=== PATIENT | female | born 1985 | race Caucasian/White ===

== ENCOUNTER 2023-09-22 09:24 | Outpatient (AMB) | payer OTHER, SELFPAY ==
--- NOTE | 2023-09-22 09:38 | A.OFFPC_ITS ---
Vital Signs 09/22/23 09:44 Height 5 ft 2 in Weight 129 lb 6 oz BMI 23.7 BP 118/78 Blood Pressure Location Lt brachial Position Sitting Pulse 89 Pulse Source Pulse Oximeter Pulse Oximetry (%) 100 Oxygen Delivery Method Room Air Intake Visit Reasons: New patient-requesting physical Intake Note: Patient is a new patient, with concern of heart palpitations. Allergies No Known Allergies Allergy (Verified 09/22/23 09:47) Tobacco use date assessed: 09/22/23 Dental Screening Dental Screen Date: 09/22/23 Did you have a dental visit in the last 12 months?: Yes Did you have a dental problem in the last 6 months where you did not have access to dental care?: No Was dental information given to patient?: Patient has dentist HPI New patient-requesting physical HPI Details New patient Prior PCP:? [facility] Last office visit/CPE: >1 year Acute issue(s): Heart Palpitations about?once?or?twice?a?month. Primarily?at?night?and?wakes?her?up. Also?notes?some?chest?pressure?in?the?center?of?her?chest.??Not?associated?with? exertion.??Does?not?happen?with?exertion. Patient?concerned?because?mom?has?history?of?SVT?and?dad?has?history?of?atrial?f ibrillation. Also?some?tingling?and?numbness?in?hands?and?fingers?which?is?associated?with?th henrique?episodes. Shortness of breath not associated with exertion. She?also?notes?some?gasping?while?sleeping?which?awakens?her. PMHx: Palpitations SurgHx: Endoscopy FHx: Dad: AFib. Mom: SVT. pGM: Breast CA SocHx: Nonsmoker. EtOH 2-3 drinks per week. No drugs. PFSH Medical History (Updated 09/22/23 @ 10:50 by Tim Hinton) Shingles Acid reflux IBS (irritable bowel syndrome) Cervical spine fracture Palpitations Asthma Surgical History (Updated 09/22/23 @ 09:54 by Valentine Teresa [facility]) H/O endoscopy Family History (Updated 09/22/23 @ 09:57 by Valentine Teresa CMA) Mother SVT (supraventricular tachycardia) Father Afib Paternal Grandmother Thyroid disorder Breast cancer Paternal Grandfather Diabetes Social History Housing: House Patient Tobacco Use Status: Never used Tobacco e-Cigarette/Vaping Use: Never Used service: No Current occupational status: employed 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 Cognitive needs: No Hearing needs: No Vision needs: Yes (Patient wears glasses) Questionnaire Thrive Questionnaire Date Thrive assessed: 09/22/23 I am a: Patient What is your living situation today?: I have a steady place to live Within the past 12 months, did the food you bought not last and you didn't have the money to get more?: Never true Within the past 12 months, did you worry whether your food would run out before you got money to buy more?: Never true Do you have trouble paying for medicines?: No Do you have trouble getting transportation to medical appointments?: No Do you have trouble paying your heating and electricity bill?: No Do you have trouble taking care of your child, family member or friend?: No Do you have trouble with day-to-day activities such as bathing, preparing meals, shopping, managing finances, etc.?: No Are you currently unemployed and looking for a job?: No Are you interested in more education?: No AUDIT C Alcohol Use Questionnaire (AUDIT-C) 1. How often do you have a drink containing alcohol?: 2-3 times a week 2. How many drinks containing alcohol do you have on a typical day when you are drinking?: 1 or 2 3. How often do you have six or more drinks on one occasion?: Never Total Score: 3 RIC-7 AMB Questionnaire RIC-7 Date RIC - 7 assessed: 09/22/23 Not being able to stop or control worryin = Not at all Worrying too much about different things: 0 = Not at all Trouble relaxin = Not at all Being so restless that it is hard to sit still: 0 = Not at all Becoming easily annoyed or irritable: 0 = Not at all Feeling afraid as if something awful might happen: 0 = Not at all Source: Developed by Drs. Madan Elizalde, Anita Hamilton, Eamon Strauss and colleagues, with an educational gayle from [employer]. Review of Systems Const Denies chills, Denies fatigue, Denies fever(s), Denies headache(s) and Denies w eakness ENT Denies dizziness and Denies headache(s) Card Denies chest pain, Denies lightheadedness, Denies dyspnea and Denies other (Palpitations) Resp Denies cough, Denies dyspnea, Denies wheezing and Denies other ( shortness of breath) Musc Denies numbness and Denies tingling Neuro Denies dizziness, Denies headache(s), Denies numbness, Denies tingling, Denies paresthesias and Denies weakness Psych Denies anxiety and Denies depression Endo Denies fatigue Aller/Immun Denies wheezing Physical exam (Primary Care) Vital Signs: Last Vital Signs Pulse 89 09/22/23 09:44 BP 118/78 09/22/23 09:44 Pulse Ox 100 09/22/23 09:44 Oxygen Delivery Method Room Air 09/22/23 09:44 BMI result Body Mass Index 23.7 Tobacco/Smoking Status: Tobacco use Status Tobacco use date assessed 09/22/23 09/22/23 10:02 Patient Tobacco Use Status Never used Tobacco 09/22/23 10:02 e-Cigarette/Vaping Use Never Used 09/22/23 10:02 Thrive Assessment: Date of Thrive Assessment Date Thrive assessed 09/22/23 09/22/23 10:02 Const General: no acute distress and well developed Nutritional Appearance: well nourished Orientation/consciousness: patient oriented x3 HENMT Head: Yes normocephalic and Yes atraumatic Eyes General: appearance normal, both eyes and all related structures Pupils: Equal, round and reactive pupils present EOM: EOMs intact bilaterally Resp Effort & Inspection: normal respiratory effort Auscultation: clear to auscultation bilaterally Cardio Rate: regular rate Rhythm: regular rhythm Heart sounds: S1 normal heart sound present, S2 normal heart sound present, no gallops, no murmurs and no rubs Neuro General: patient oriented x3 and gait normal Cranial nerves: Yes Equal, round and reactive pupils present Psych Affect: normal affect Assessment and Plan Assessment & Plan (1) Palpitations: Code(s): R00.2 - Palpitations Plan: Palpitations?1- 2?times?per?month?which?wake?her?up?and?are?not?associated?with?exertion She?notes?this?is?primarily?at?nighttime?and?also?associated?with?tingling?in?dee nds?and?feet. She?also?notes?some?awaken ing?gasping?at?times?but?this?is?not?always?associated?with?palpitations. EKG?shows?normal?sinus?rhythm;?normal?EKG Patient?also?notes?that?she?has?had?some?intermittent?chest?pain?which?has?not?b een?associated?with?the?palpitations?however. She?also?notes?that?her?parents?have?both?been?diagnosed?with?arrhythmias Referred?to?Cardiology?as?per?patient?request. (2) Palpitations: Code(s): R00.2 - Palpitations (3) Chest discomfort: Code(s): R07.89 - Other chest pain Plan: As?above Patient?notes?she?is?had?an?endoscopy?and?was?trialed?on?medication?for?GERD?in? the?past?as?this?was?the?working?diagnosis?at?the?time. She?says?the?endoscopy?was?clear?and?the?medication?did?not?help. As?above,?she?is?referred?to?Cardiology (4) Shortness of breath: Code(s): R06.02 - Shortness of breath Plan: Patient?awakens?short?of?breath?and?gasping?at?times. Possible?sleep?apnea-see?below (5) Sleep apnea: Code(s): G47.30 - Sleep apnea, unspecified Plan: Patient?occasionally?awakens?gasping Also?notes?tingling?in?hands?and?feet?at?that?time She?has?also?awakened?with?palpitations?at?time Referred?to?Sleep?Medicine Orders: Orders AMB EKG-In Office Today R00.2 - Palpitations Lipid Panel Today Z00.00 - Encounter for general adult medical examination without abnormal findings TSH reflex Free T4 Today Z00.00 - Encounter for general adult medical examination without abnormal findings Comprehensive [place]. Panel Fast Today Z00.00 - Encounter for general adult medical examination without abnormal findings Complete Blood Count Auto Diff Today Z00.00 - Encounter for general adult medical examination without abnormal findings Microalbumin, Random (w Creat) Today I10 - Essential (primary) hypertension UA and rflx microscopic Today Z00.00 - Encounter for general adult medical examination without abnormal findings Referrals Sleep Medicine Referral G47.30 - Sleep apnea, unspecified Cardiology Referral R00.2 - Palpitations, R06.02 - Shortness of breath, R07.89 - Other chest pain Coding Level of Care Code New Pt Level 4 (62150) Diagnoses Palpitations R00.2 Chest discomfort R07.89 Shortness of breath R06.02 Sleep apnea G47.30
[2023-09-22 09:44] VITALS: BP 118/78; PULSE 89; O2SAT 100; BMI 23.7
== END 2023-09-22 10:43 | disposition home or self-care (01) ==
PROVIDERS: PCP Family Medicine; Visit Provider Family Medicine
DX: R00.2 Palpitations (principal); R07.89 Other chest pain; R06.02 Shortness of breath; G47.30 Sleep apnea, unspecified
CPT/HCPCS: 99204

== ENCOUNTER 2023-09-29 08:47 | Outpatient (REF) | payer OTHER, SELFPAY ==
[2023-09-29 11:31] LABS: Appearance Urine Clear; Color Urine Yellow; Glucose Urine UA Negative (Negative); Leukocyte Esterase Urine Moderate (2+) (Negative); MANUAL DIFF FLAG NO; Nitrite Urine Negative (Negative); Specific Gravity - Urine <= 1.005 (1.005-1.025); UMIC TRIGGER UA YES; Urine Blood Negative (Negative); Urine Ketones Negative (Negative); Urine Protein Negative (Neg-Trace)
[2023-09-29 11:33] LABS: Basophils Absolute Auto 0.1 X10*3/uL (0.0-0.2); Basophils Percent Auto 0.8 % (0-2); Eosinophils Absolute Auto 0.2 X10*3/uL (0.0-0.4); Eosinophils Percent Auto 2.3 % (0-4); Hematocrit 41.1 % (37.0-47.0); Hemoglobin 13.3 g/dl (12.0-16.0); Imm Gran Abs Auto 0.03 X10*3/uL (0.00-0.03); Imm Gran Pct Auto 0.4 % (0.0-0.4); Lymphocytes Absolute Auto 2.3 X10*3/uL (1.2-4.9); Mean Corpuscular HGB Conc 32.4 g/dl (31.0-35.0); Mean Corpuscular Hemoglobin 27.2 pg (27.0-33.0); Mean Platelet Volume 9.5 fL (9.4-12.3); Monocytes Absolute Auto 0.5 X10*3/uL (0.1-1.2); Monocytes Percent Auto 6.3 % (2-11); Neutrophils Absolute Auto 4.4 x10*3/uL (2.0-8.3); Neutrophils Percent Auto 59.2 % (45-73); Platelet Count 318 X10*3/uL (160-400); Red Blood Count 4.89 X10*6/uL (4.20-5.50); Red Cell Distribution Width 12.4 % (11.0-16.0); White Blood Count 7.4 X10*3/uL (4.8-10.8)
[2023-09-29 11:45] LABS: Bacteria Urine Trace (None Seen); Hyaline Casts Urine 0-2 /LPF (0-2); RBC Urine 0-2 /HPF (0-2); WBC Urine 0-5 /HPF (0-5)
[2023-09-29 12:23] LABS: Alanine Aminotransferase 10 U/L (0-31); Albumin Level 4.2 g/dL (3.5-5.0); Alkaline Phosphatase 54 U/L (39-117); Anion Gap 11 (12-20); Aspartate Amino Transferase 16 U/L (5-31); Bilirubin Total 0.4 mg/dL (0.0-1.0); Blood Urea Nitrogen 13 mg/dL (9-16); Calcium 9.4 mg/dL (8.4-10.2); Carbon Dioxide 23 mmol/L (22-29); Chloride 106 mmol/L (96-108); Cholesterol 234 mg/dL (<200); Estimated Glomerular Filt Rate > 60; Glucose Fasting 84 mg/dL (60-99); HDL Cholesterol 66 mg/dL (>40); LDL Cholesterol Calculated 144 mg/dL (<100); Potassium 4.2 mmol/L (3.3-5.1); Sodium 136 mmol/L (135-145); TSH reflex Free T4 1.12 uIU/mL (0.32-4.0); Total Protein 7.4 g/dL (6.5-8.0); Triglycerides 124 mg/dL (<150)
[2023-09-29 12:42] LABS: Creatinine Urine 35.22 mg/dL; Microalbumin Urine < 5.0 mg/L
== END 2023-09-29 08:48 | disposition home or self-care (01) ==
LOC: HO.WFDLDS 08:47
PROVIDERS: Visit Provider Family Medicine
DX: Z00.00 Encounter for general adult medical examination without abnormal findings (principal); I10 Essential (primary) hypertension
CPT/HCPCS: 36415; 80053; 80061; 81001; 82043; 82570; 84443; 85025

== ENCOUNTER 2023-10-18 08:09 | Outpatient (AMB) | payer OTHER, SELFPAY ==
--- NOTE | 2023-10-18 08:12 | A.OFFVIS_ITS ---
Intake Vital Signs 10/18/23 08:15 Height 5 ft 2 in Weight 133 lb BMI 24.3 BP 110/70 Blood Pressure Location Rt brachial Position Sitting Pulse 87 Pulse Source Pulse Oximeter Pulse Oximetry (%) 97 Oxygen Delivery Method Room Air Intake Visit Reasons: 09/22 Letter-Busy tone [id number] Intake Note: NPV for evaluation for BUFFY Aquatic Director Required: No Allergies No Known Allergies Allergy (Verified 10/18/23 08:13) HPI HPI Comments History of Present Illness Details 38 y/o female patient presents for new i n-person visit for sleep consultation. Pt reports palpitation,chest heviness and gasping at night. She checked her HR when she had episode of palpitation, the HR was over 130s. She was diagnosed with GERD and IBS recently. Pt reports snoring, and witnessed apnea spells. She has non refreshing sleep with daytime sleepiness. She drinks one beer or one glass of wine 2-3 times a week before 6 pm. Sleep questionnaire: Have you ever been diagnosed with a sleep disorder? No. Have you ever had a sleep study in the past? No. Have you ever been treated for a sleep disorder? No. Do you take medications for a sleep disorder? No. Do you snore? Yes. Do you wake up gasping at night? Yes. Do you have episodes of apneas? Yes. If yes, are they witnessed? Yes, by her . Do you have episodes of nocturnal chest pain or dyspnea? Yes. Do you have difficulty initiating sleep? Yes. Do you have difficulty maintaining sleep? Yes, tosses and turns, can't sleep throughout the night. Do you wake up tired? Yes. Do you have headaches upon awakening? Yes, slightly. Do you wake up with dry mouth or throat? Not really. Do you have GERD? Yes. Do you have nocturia? Maybe once. Do you have nocturnal leg cramps? No. Do you have symptoms of restless legs? No. Do you act out your dreams? Yes, sometimes. Sleep hygiene questionnaire: What is your usual sleep routine? Usual bedtime is at 9-10 am; Usual wake up harry e is at 7-7:30 am. Do you take naps? No. Is your sleep environment cool, dark, and quiet? Yes. Do you exercise? Yes, wt lifting, couple of times a week. Do you take caffeine or other stimulants? One coffee in the morning. Do you use electronics in bed? No. What is your work schedule? 4 pm to 9 pm. Hypersomnolence questionnaire: Do you have daytime tiredness or fatigue? Yes. Do you easily fall asleep when inactive? No. Have you ever had episodes of sudden weakness? No. Have you ever had episodes of sudden weakness associated with strong emotions? No. PFSH Medical History (Updated 10/18/23 @ 08:34 by Moraima Lemus CNP) Shingles Acid reflux IBS (irritable bowel syndrome) Cervical spine fracture Palpitations Asthma Surgical History (Updated 09/22/23 @ 09:54 by Valentine Teresa [facility]) H/O endoscopy Family History (Updated 09/22/23 @ 09:57 by Valentine Teresa CMA) Mother SVT (supraventricular tachycardia) Father Afib Paternal Grandmother Thyroid disorder Breast cancer Paternal Grandfather Diabetes (Updated 10/18/23 @ 08:14 by Elvira Maldonado [facility]) Housing: House Alcohol intake: current Alcohol intake frequency: holidays/special occasions only Patient Tobacco Use Status: Never used Tobacco e-Cigarette/Vaping Use: Never Used service: No Current occupational status: employed 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 Sexual orientation: Unable to collect Gender identity: Unable to collect Cognitive needs: No Hearing needs: No Vision needs: Yes (Patient wears glasses) Review of Systems Const All systems reviewed & are unremarkable except as noted in HPI and below ENT Reports Normal hearing present Neuro Reports Normal hearing present Physical Exam Vital Signs: Last Vital Signs Pulse 87 10/18/23 08:15 BP 110/70 10/18/23 08:15 Pulse Ox 97 10/18/23 08:15 Oxygen Delivery Method Room Air 10/18/23 08:15 BMI result Body Mass Index 24.3 Const General: cooperative Nutritional Appearance: average body habitus Orientation/consciousness: patient oriented x3 Neck Neck: Yes full ROM and Yes supple Resp Effort & Inspection: normal respiratory effort and able to speak in complete sentences Neuro General: patient oriented x3, gait normal and moves all extremities Cranial nerves: Yes Bilaterally intact EOM present, Yes Normal facial strength present, Yes Midline tongue present, Yes Symmetric palate elevation present, Yes Normal hearing present and Yes Ability to bilaterally elevate shoulders present Cognition (Neuro): normal cognition Gait exam (Neuro): Normal gait present Motor exam (neuro): 5/5 motor strength present throughout, Pronator motor function not present and no tremor noted Psych Appearance: grossly normal Mental Status: mental status grossly normal Speech and movement: Normal speech and movement present Affect: normal affect Attitude: cooperative Assessment & Plan Assessment & Plan (1) Daytime sleepiness: Code(s): R40.0 - Somnolence (2) Snoring: Code(s): R06.83 - Snoring (3) Sleep apnea: Code(s): G47.30 - Sleep apnea, unspecified Plan Pt is advised to undergo home sleep study to assess for sleep apnea. Will f/u with pt after study to discuss results and appropriate treatment options. Advised patient to try magnesium supplement for sleep and prevent headache. Pt to call with any worsening concerns or questions. Orders: Orders RT home sleep study Today G47.30 - Sleep apnea, unspecified, R00.2 - Palpitations, R06.83 - Snoring, R07.89 - Other chest pain, R40.0 - Somnolence Coding Level of Care Code New Pt Level 3 (81717) Diagnoses Daytime sleepiness R40.0 Snoring R06.83 Sleep apnea G47.30
[2023-10-18 08:15] VITALS: BP 110/70; PULSE 87; O2SAT 97; BMI 24.3
== END 2023-10-18 08:45 | disposition home or self-care (01) ==
PROVIDERS: PCP Family Medicine; Visit Provider Nurse Practitioner Family
DX: R40.0 Somnolence (principal); R06.83 Snoring; G47.30 Sleep apnea, unspecified
CPT/HCPCS: 99203

== ENCOUNTER → 2023-10-18 08:09 | Outpatient (BNVA) | payer OTHER, SELFPAY | PROVIDERS: PCP Family Medicine; Visit Provider Nurse Practitioner Family | DX: R07.89 Other chest pain (principal); R00.2 Palpitations; R06.83 Snoring; G47.30 Sleep apnea, unspecified; R40.0 Somnolence | CPT/HCPCS: 99202 ==

== ENCOUNTER 2023-12-08 10:46 | Outpatient (AMB) | payer OTHER, SELFPAY ==
--- NOTE | 2023-12-08 11:20 | A.OFFPC_ITS ---
Vital Signs 12/08/23 11:22 Height 5 ft 2 in Weight 132 lb BMI 24.1 BP 148/82 H Blood Pressure Location Lt brachial Position Sitting Respiration 16 Pulse 140 H Pulse Source Pulse Oximeter Pulse Oximetry (%) 99 Oxygen Delivery Method Room Air Intake Visit Reasons: CPE with f/u labs and health maint. Intake Note: Patient is here today for a physical. 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 HPI Details 38 y/o female presents for a CPE with f/ u labs and health maintenance. Labs were drawn 09/29/23. Reviewed labs with pt. Triglycerides 124. TC 234. LDL 144. HDL 66. Blood pressure today 148/82, 140p. She reports she has an appt. with Cardiology on 12/26/23. Pt notes she feels anxious sometimes but not on a daily basis. Pt reports acid reflux with trigger food that sometimes happens more than once a week. [facility] Medical History (Updated 12/08/23 @ 12:13 by Tim Hinton) Shingles Acid reflux IBS (irritable bowel syndrome) Cervical spine fracture Palpitations Asthma Surgical History H/O endoscopy Family History Mother SVT (supraventricular tachycardia) Father Afib Paternal Grandmother Thyroid disorder Breast cancer Paternal Grandfather Diabetes Social History Housing: House Alcohol intake: current Alcohol intake frequency: holidays/special occasions only Patient Tobacco Use Status: Never used Tobacco e-Cigarette/Vaping Use: Never Used service: No Current occupational status: employed 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 1. Little interest or pleasure in doing things: not at all 2. Feeling down, depressed, or hopeless: not at all 3. Trouble falling or staying asleep, or sleeping too much: not at all 4. Feeling tired or having little energy: not at all 5. Poor appetite or overeating: not at all 6. Feeling bad about yourself - or that you are a failure or have let yourself or your family down: not at all 7. Trouble concentrating on things, such as reading the newspaper or watching television: not at all 8. Moving or speaking so slowly that other people could have noticed. Or the opposite - being so fidgety or restless that you have been moving around a lot more than usual: not at all 9. Thoughts that you would be better off or of hurting yourself in some way: not at all Total score: 0 Depression Screening Interpretation: Negative Depression Screening Done: Yes 55382 - PHQ-9 Billing: Yes Source: Developed by Drs. Madan Elizalde, Aniat Hamilton, Eamon Strauss and colleagues, with an educational gayle from [employer]. Thrive Questionnaire Date Thrive assessed: 12/08/23 I am a: Patient What is your living situation today?: I have a steady place to live Within the past 12 months, did the food you bought not last and you didn't have the money to get more?: Never true Within the past 12 months, did you worry whether your food would run out before you got money to buy more?: Never true Do you have trouble paying for medicines?: No Do you have trouble getting transportation to medical appointments?: No Do you have trouble paying your heating and electricity bill?: No Do you have trouble taking care of your child, family member or friend?: No Do you have trouble with day-to-day activities such as bathing, preparing meals, shopping, managing finances, etc.?: No Are you currently unemployed and looking for a job?: No Are you interested in more education?: No Please select the resources that you would like help with: None Currently or been in a relationship where the following occur: no concerns reported AUDIT C Alcohol Use Questionnaire (AUDIT-C) 1. How often do you have a drink containing alcohol?: 2-3 times a week 2. How many drinks containing alcohol do you have on a typical day when you are drinking?: 1 or 2 3. How often do you have six or more drinks on one occasion?: Never Total Score: 3 RIC-7 AMB Questionnaire RIC-7 Date RIC - 7 assessed: 12/08/23 Feeling nervous, anxious, or on edge: 0 = Not at all Not being able to stop or control worryin = Not at all Worrying too much about different things: 0 = Not at all Trouble relaxin = Not at all Being so restless that it is hard to sit still: 0 = Not at all Becoming easily annoyed or irritable: 0 = Not at all Feeling afraid as if something awful might happen: 0 = Not at all Total RIC-7 score (0-4 normal; 5-9 mild; 10-14 moderate; 15-21 severe): 0 Source: Developed by Drs. Madan Elizalde, Anita Hamilton, Eamon Strauss and colleagues, with an educational gayle from [employer]. RIC-7 Assessment Billing RIC-7 Assessment Tool: RIC-7 Assessment 01043 Review of Systems Const Denies chills, Denies fatigue, Denies fever(s), Denies headache(s) and Denies weakness Eyes Denies change in vision ENT Denies dizziness, Denies headache(s), Denies hearing loss, Denies nasal congestion, Denies sinus pain, Denies sinus pressure and Denies sore throat Card Denies chest pain, Denies lightheadedness, Denies dyspnea and Denies other (palpitations) Resp Denies cough, Denies dyspnea and Denies wheezing GI Denies abdominal pain, Denies melena, Denies hematochezia, Denies change in bowel habits, Denies dyspepsia and Denies nausea Denies hematuria and Denies dysuria Musc Denies abnormal gait, Denies myalgias, Denies arthralgias, Denies numbness and Denies tingling Skin/Breast Denies rash, Denies unusual bruising and Denies wounds Neuro Denies abnormal gait, Denies dizziness, Denies headache(s), Denies memory loss, Denies numbness, Denies Sensory deficit (Neuro), Denies tingling and Denies weakness Psych Denies anxiety, Denies depression and Denies memory loss Endo Denies cold intolerance, Denies fatigue, Denies heat intolerance, Denies polydipsia and Denies polyuria Jay Jay/Lymph Denies easy bleeding and Denies easy bruising Aller/Immun Denies wheezing Physical exam (Primary Care) Vital Signs: Last Vital Signs Pulse 140 H 12/08/23 11:22 Resp 16 12/08/23 11:22 BP 148/82 H 12/08/23 11:22 Pulse Ox 99 12/08/23 11:22 Oxygen Delivery Method Room Air 12/08/23 11:22 BMI result Body Mass Index 24.1 Tobacco/Smoking Status: Tobacco use Status Tobacco use date assessed 12/08/23 12/08/23 11:27 Patient Tobacco Use Status Never used Tobacco 12/08/23 11:20 e-Cigarette/Vaping Use Never Used 12/08/23 11:20 PHQ-9: PHQ-9 Score PHQ-9: Total score 0 12/08/23 11:27 Depression Screening Interpretation: Negative Thrive Assessment: Date of Thrive Assessment Date Thrive assessed 12/08/23 12/08/23 11:27 Currently or been in a relationship where the following occur: no concerns reported Const General: no acute distress, well developed, alert and awake Nutritional Appearance: well nourished Orientation/consciousness: patient oriented x3 HENMT Head: Yes normocephalic and Yes atraumatic Ears: hearing grossly normal bilaterally and TM's normal bilaterally General nose exam: Normal external nose present and Normal nares present Mouth: Normal oral and palatal mucosa present and moist mucous membranes Teeth and gingiva: dentition normal Throat: Yes posterior oropharynx normal Eyes General: appearance normal, both eyes and all related structures Pupils: Equal, round and reactive pupils present and Pupil accommodation reflex normal EOM: EOMs intact bilaterally Neck Neck: Yes normal visual inspection, Yes no lymphadenopathy and Yes trachea midline Thyroid: Thyroid normal Carotids: no bruits Lymphatic: no lymphadenopathy noted Chest Chest palpation & inspection: normal inspection of the chest Resp Effort & Inspection: normal respiratory effort Auscultation: clear to auscultation bilaterally Cardio Rate: tachycardic Rhythm: regular rhythm Heart sounds: S1 normal heart sound present, S2 normal heart sound present, no gallops, no murmurs and no rubs Bruits: no abdominal aortic bruits and no carotid bruits GI Palpation (GI): No Abdominal aortic bruit present, Soft to palpation, nontender, No hepatosplenomegaly present and No Rebound tenderness present Auscultation: normal bowel sounds General: Yes no CVA tenderness Back/Spine/Pelvis Back: no CVA tenderness Cervical Spine: cervical ROM normal and No Cervical spine tenderness Thoracic/Lumbar Spine: thoraco-lumbar ROM normal, No pain with thoraco-lumbar ROM, No thoracic spinal tenderness and No lumbar spinal tenderness Skin Lesions: no lesions Rashes: no rashes Trauma: no lacerations or abrasions Wounds: no wounds Nails: normal Neuro General: patient oriented x3 Cranial nerves: Yes Equal, round and reactive pupils present Cognition (Neuro): normal cognition Gait exam (Neuro): Normal gait present Motor exam (neuro): 5/5 motor strength present throughout Sensory Exam: No Sensory deficit (Neuro) Deep tendon reflexes (DTR's): Right patellar reflex intensity grade: 2+ and Left patellar reflex intensity grade: 2+ Extrem General: Yes normal to inspection and No edema Psych Appearance: grossly normal Affect: normal affect Attitude: cooperative Thought process: Normal thought process present Assessment and Plan Assessment & Plan (1) Tachycardia: Code(s): R00.0 - Tachycardia, unspecified Plan: Bouts?of?palpitations?and?tachycardia. Cardiac?auscultation?was?normal?except?for?elevated?heart?rate?in?the?1?teens Blood?pressure?was?mildly?elevated. Heart?rate?decreased?with?time?and?relaxation EKG?showed?heart?rate?of?97?beats?per?minute. Normal?sinus?rhythm,?normal?axis,?normal?intervals,?no?hypertrophy?and?no?ST-T-w ave?changes. She?already?has?an?appointment?with?cardiology. Will?give?her?a?small?dose?of?metoprolol. Follow-up?with?Cardiology?as?recommended (2) Knee pain: Code(s): M25.569 - Pain in unspecified knee (3) Screening for cervical cancer: Code(s): Z12.4 - Encounter for screening for malignant neoplasm of cervix (4) Adult general medical exam: Code(s): Z00.00 - Encounter for general adult medical examination without abnormal findings (5) Elevated LDL cholesterol level: Code(s): E78.00 - Pure hypercholesterolemia, unspecified Plan: HDL?ratios?are?good. Encouraged?her?to?work?on?a?diet?lower?in?saturated?fats?and?cholesterol. No?medications?started Orders: Orders XR knee LT 3V Today M25.569 - Pain in unspecified knee Medications: New metoprolol succinate ER 12.5 mg (1/2 x 25 mg) PO BID PRN 90 tabs 1RF Palpitations/Fast Heart Rate 90 days Coding Level of Care Code Est Pt Level 3 (87725) Est Pt Prev Care 18-39y(13458) Diagnoses Tachycardia R00.0 Knee pain M25.569 Screening for cervical cancer Z12.4 Adult general medical exam Z00.00 Elevated LDL cholesterol level E78.00 Additional Codes RIC-7 Assessment Billing - RIC-7 Assessment Tool: RIC-7 Assessment 44759 ([id number])
[2023-12-08 11:22] VITALS: BP 148/82; PULSE 140; RESP 16; O2SAT 99; BMI 24.1
== END 2023-12-08 12:16 | disposition home or self-care (01) ==
PROVIDERS: PCP Family Medicine; Visit Provider Family Medicine
DX: Z00.00 Encounter for general adult medical examination without abnormal findings (principal); R00.0 Tachycardia, unspecified; M25.562 Pain in left knee; E78.00 Pure hypercholesterolemia, unspecified
CPT/HCPCS: 93000; 99213; 99395

== ENCOUNTER 2023-12-26 12:17 | Outpatient (AMB) | payer OTHER, SELFPAY ==
[2023-12-26 12:38] VITALS: BP 114/72; PULSE 99; BMI 23.4
--- NOTE | 2023-12-26 12:38 | A.OFFVIS_ITS ---
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 She states that she frequently feels her heart fluttering. This happens mostly when she is resting unless so during activity. Has had this for a few years off and on. In 2019, she was seen at [facility] and it seems that a 30 day monitor was recommended but did not pursue that. Otherwise, no known cardiac issues including coronary disease or myocardial infarction or cardiomyopathy. No known arrhythmias. She tried empiric metoprolol but had side effects and hence not taking it currently. She also has asthma but again well controlled. There is a family history of supraventricular tachycardia as well as atrial fibrillation and hence she is concerned. [facility] Medical History (Updated 12/08/23 @ 12:13 by Tim Hinton) Shingles Acid reflux IBS (irritable bowel syndrome) Cervical spine fracture Palpitations Asthma Surgical History H/O endoscopy Family History Mother SVT (supraventricular tachycardia) Father Afib Paternal Grandmother Thyroid disorder Breast cancer Paternal Grandfather Diabetes Social History Housing: House Alcohol intake: current Alcohol intake frequency: holidays/special occasions only Patient Tobacco Use Status: Never used Tobacco e-Cigarette/Vaping Use: Never Used service: No Current occupational status: employed 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 Sexual orientation: Unable to collect Gender identity: Unable to collect Cognitive needs: No Hearing needs: No Vision needs: Yes (Patient wears glasses) Review of Systems Const Denies chills, Denies daytime sleepiness, Denies fatigue, Denies fever(s), Denies frequent falls, Denies night sweats, Denies snoring, Denies weakness, Denies weight gain and Denies weight loss Eyes Denies loss of vision ENT Denies dizziness and Denies hearing loss Card Denies chest pain with activity, Denies syncope, Denies rapid heart rate, Denies edema, Denies claudication, Denies leg edema, Denies lightheadedness, Denies dyspnea and Denies orthopnea Resp Denies cough, Denies excessive phlegm production, Denies dyspnea, Denies snoring and Denies wheezing GI Denies abdominal pain, Denies hematochezia, Denies change in bowel habits, Denies change in stool character, Denies heartburn, Denies nausea and Denies vomiting Denies hematuria, Denies urinary frequency and Denies dysuria Musc Denies arthralgias, Denies muscle weakness, Denies numbness and Denies tingling Skin/Breast Denies nail changes and Denies rash Neuro Denies Abnormal speech present, Denies dizziness, Denies syncope, Denies frequent falls, Denies loss of vision, Denies memory loss, Denies numbness, Denies tingling and Denies weakness Psych Denies depression and Denies memory loss Endo Denies fatigue Aller/Immun Denies wheezing Physical Exam Vital Signs: Last Vital Signs Pulse 99 12/26/23 12:38 BP 114/72 12/26/23 12:38 BMI result Body Mass Index 23.4 Const General: comfortable and no acute distress Orientation/consciousness: patient oriented x3 HEENT Other: Unremarkable Head: Yes normal to inspection Neck Neck: Yes normal visual inspection Chest Chest palpation & inspection: normal inspection of the chest Resp Auscultation: clear to auscultation bilaterally Cardio Palpation: normal PMI Heart sounds: S1 normal heart sound present, S2 normal heart sound present, no gallops, no murmurs and no rubs GI Palpation (GI): Soft to palpation Back/Spine/Pelvis Other: unremarkable Skin General skin exam: no rashes or lesions noted Neuro General: patient oriented x3 Speech: No Abnormal speech present Extrem General: Yes normal to inspection Psych Mental Status: mental status grossly normal Assessment & Plan Assessment & Plan (1) Palpitations: Code(s): R00.2 - Palpitations Plan In the recent EKG, underlying rhythm is sinus at 97/Min; no significant ST-T changes and otherwise unremarkable. Normal UT and corrected QT. Not clear if she is feeling any sinus tachycardia or truly having any arrhyth mias. Recommend a 30 day monitor for further evaluation. Echocardiogram for cardiac function assessment. She can hold off beta-blockers at this time as she is stating side effects. Follow-up after testing. Orders: Orders CA echo transthoracic complete Today R00.2 - Palpitations ECG 30 day event monitor Today R00.2 - Palpitations Coding Level of Care Code New Pt Level 3 (55590) Diagnoses Palpitations R00.2
== END 2023-12-26 12:58 | disposition home or self-care (01) ==
PROVIDERS: PCP Family Medicine; Referring Provider Family Medicine; Visit Provider Internal Medicine
DX: R00.2 Palpitations (principal)
CPT/HCPCS: 99203

== ENCOUNTER → 2023-12-26 12:17 | Outpatient (BNVA) | payer OTHER, SELFPAY | PROVIDERS: PCP Family Medicine; Visit Provider Internal Medicine | DX: R00.2 Palpitations (principal) | CPT/HCPCS: 99202 ==

== ENCOUNTER 2024-01-12 08:36 | Outpatient (AMB) | payer OTHER, SELFPAY ==
[2024-01-12 08:51] VITALS: BP 121/72; PULSE 86; O2SAT 99; BMI 23.7
--- NOTE | 2024-01-12 08:51 | MHC.PC.OV ---
Vital Signs 01/12/24 08:51 Height 5 ft 2 in Weight 129 lb 6 oz BMI 23.7 BP 121/72 Blood Pressure Location Lt brachial Pulse 86 Pulse Oximetry (%) 99 Oxygen Delivery Method Room Air Intake Visit Reasons: f/u knee pain Intake Note: Patient is here to follow up on left knee pain, not feeling better. Allergies No Known Allergies Allergy (Verified 01/12/24 08:55) Tobacco use date assessed: 01/12/24 HPI f/u knee pain HPI Details 38 y/o female presents to f/u tachycardia and L knee discomfort. EKG had shown normal sinus rhythm though she did have tachycardia to auscultation earlier in exam. Trialing metoprolol. Had seen Cardiology 12/26/23 for palpitations. They had recommended a 30 day monitor for further evaluation. Pt reports metoprolol had been giving her bad headaches and was unable to tolerate this. She notes she will go next week to get her echocardiogram and to miner pick her monitor. 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 Madan Elizalde, Anita Hamilton, Eamon Strauss and colleagues, with an educational gayle from [employer]. Review of Systems Const Denies chills, Denies fatigue, Denies fever(s), Denies headache(s) and Denies weakness ENT Denies dizziness and Denies headache(s) Card Denies dyspnea Resp Denies cough, Denies dyspnea, Denies wheezing and Denies other (shortness of breath) Musc Details: L knee pain Denies numbness and Denies tingling Neuro Denies dizziness, Denies headache(s), Denies numbness, Denies tingling and Denies weakness Psych Denies anxiety and Denies depression Endo Denies fatigue Aller/Immun Denies wheezing Physical exam (Primary Care) Vital Signs: Last Vital Signs Pulse 86 01/12/24 08:51 BP 121/72 01/12/24 08:51 Pulse Ox 99 01/12/24 08:51 Oxygen Delivery Method Room Air 01/12/24 08:51 BMI result Body Mass Index 23.7 Tobacco/Smoking Status: Tobacco use Status Tobacco use date assessed 01/12/24 01/12/24 08:59 Patient Tobacco Use Status Never used Tobacco 01/12/24 08:51 e-Cigarette/Vaping Use Never Used 01/12/24 08:51 Thrive Assessment: Date of Thrive Assessment Date Thrive assessed 12/08/23 01/12/24 08:51 Const General: well developed; No acute distress Nutritional Appearance: well nourished Orientation/consciousness: patient oriented x3 [facility] Head: Yes normocephalic and Yes atraumatic Eyes General: appearance normal, both eyes and all related structures Pupils: Equal, round and reactive pupils present EOM: EOMs intact bilaterally Resp Effort & Inspection: normal respiratory effort Auscultation: clear to auscultation bilaterally Cardio Rate: regular rate Rhythm: regular rhythm Heart sounds: S1 normal heart sound present, S2 normal heart sound present, no gallops, no murmurs and no rubs Neuro General: patient oriented x3 and gait normal Cranial nerves: Yes Equal, round and reactive pupils present Psych Affect: normal affect Assessment and Plan Assessment & Plan (1) Palpitations: Code(s): R00.2 - Palpitations Plan: Ongoing?palpitations.??Had?tried?metoprolol?but?she?said?this?gave?her?headaches?so?she?has?no?longer?taking?it. She?has?seen?Cardiology. Workup?is?still?in?progress.??She?has?a?Holter?monitor?test?and?echocardiogram?coming?up?and?follow-up?with?cardiology?in?February. Follow-up?with?Cardiology?as?recommended (2) Tachycardia: Code(s): R00.0 - Tachycardia, unspecified Plan: Mild?tachycardia?with?otherwise?normal?EKG. Heart?rate?within?normal?range?to?auscultation?today. 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 Will?start?PT?and?I?have?referred?her?to?Ortho. Discussed?with?patient?that?osteochondromas?are?generally?painless?and?benign. Orders: Orders PT Evaluation and Treatment Today M25.569 - Pain in unspecified knee Referrals Orthopedics Referral D16.20 - Benign neoplasm of long bones of unspecified lower limb, M25.569 - Pain in unspecified knee Coding Level of Care Code Est Pt Level 3 (81379) Diagnoses Palpitations R00.2 Tachycardia R00.0 Knee pain M25.569
== END 2024-01-12 09:27 | disposition home or self-care (01) ==
PROVIDERS: PCP Family Medicine; Visit Provider Family Medicine
DX: R00.2 Palpitations (principal); R00.0 Tachycardia, unspecified; M25.569 Pain in unspecified knee
CPT/HCPCS: 99213

== ENCOUNTER → 2024-01-18 09:03 | Outpatient (REF) | payer OTHER, SELFPAY ==
--- NOTE | 2024-01-18 09:07 | HM_ITS ---
Cardiac event monitor Indication: Palpitation Technique: Patient was hooked up to cardiac event monitor on 2 02/14/2024 for total period of 30 days. Compliance rate was excellent. I was requested to read this study on 03/05/2024. Findings: Baseline was normal sinus rhythm with frequent sinus tachycardia noted with 30% of the time heart rate about 100 beats per minute. No significant arrhythmias were noted. No significant pauses were noted. Patient reported to events 1 complaining of dizziness and the other complaining of racing heart rate both correlating with sinus tachycardia. Conclusion: 1. Baseline was normal sinus rhythm with no pauses 2. No significant arrhythmias detected 3. Patient reported to events correlated with sinus tachycardia MTDD
--- NOTE | 2024-01-18 09:07 | CA_ITS ---
Transthoracic Echocardiogram Patient (Last, First, Middle): Rhiannon Wilson, Gender: Female Date of : 1985 Age: 38 Procedure Date: 01/18/2024 Procedure Type: Transthoracic Echocardiogram Location: OP Height: 157.48 cm Weight: 58.51 kg BSA: 1.59 m2 Heart Rate: bpm BP: 120 / 71 mmHg Cut Tobacco Bulker: SOLANGE Referring MD: Norm Avery MD Automatic Spooler Operator: Luis Manuel Hunt MD Symptoms: R00.2 - Palpitations Study Quality: Adequate ECG Rhythm: Sinus Conclusions: - Normal study Findings Left Ventricle Normal left ventricular size, thickness, and systolic function. The visually estimated ejection fraction is between 60-65%. Spectral Doppler is indicative of a normal filling pattern. Peak GLS is -20.7%, within normal limits. Right Ventricle Normal right ventricular cavity size and systolic function. Atria Both atria are normal in size. There is no evidence of interatrial shunt. Aortic Valve Normal aortic valve structure and function. There is no aortic valve stenosis. There is no aortic valve regurgitation. Mitral Valve Normal mitral valve structure and function. There is no mitral valve regurgitation. There is no mitral valve stenosis. Pulmonic Valve The pulmonic valve is likely normal. Tricuspid Valve Normal tricuspid valve structure. There is trace tricuspid valve regurgitation. The right ventricular systolic pressure is normal. The right ventricular systolic pressure is 20 mmHg. Normal right atrial pressure. There is no evidence of pulmonary hypertension. Great Vessels All visible segments of the aorta are normal in size. The visualized portions of the pulmonary artery and branches are normal. Venous The inferior vena cava is normal in size and collapses greater than 50% with inspiration. Pericardium/Pleural There is no evidence of pericardial effusion. Prior Study Comparison No prior study available for comparison. Measurements 2D Linear Measurements IVSd: 0.84 0.6-0.9/0.6-1.0 cm LVIDd: 3.67 3.9-5.3/4.2-5.9 cm LVIDd Index: 2.31 2.4-3.2/2.2-3.1 cm/m2 LVIDs: 2.30 2.0-3.6 cm LVPWd: 0.89 0.7-1.1 cm LA Diam: 2.80 2.7-3.8/3.0-4.0 cm LAIDs Index: 1.76 1.5-2.3 cm/m2 LV Mass: 112.35 67-162/88-224 g LV Mass Index: 70.66 43-95/49-115 g/m2 LVOT Diam: 1.80 3.0+(-)1.3 cm 2D Systolic Function EF 4C: 64.70 >55% EF 2C: 66.90 >55% EF BiP: 63.80 >55% Mitral Valve MV Pk E: 1.01 MV PK A: 0.65 MV Decel Time: 165.00 E/A: 1.60 E'Lateral: 16.30 E'Medial: 12.60 E/E' Med: 8.00 E/E' Lat: 6.20 PHT: 48.00 MVA PHT: 4.58 Decel [place]: 6.11 Aortic Valve AoV Pk John: 1.24 AoV Mn John: 0.86 AoV VTI: 0.26 AoV Pk Grad: 6.00 Aov Mn Grad: 3.00 PAUL Cont.VTI: 2.28 LVOT LVOT Pk John: 1.17 LVOT Mn John: 0.77 LVOT VTI: 0.23 LVOT Pk Grad: 5.00 LVOT Mn Grad: 3.00 LVOT Diam: 1.80 LVOT Area: 2.54 Diastolic Function MV Pk E: 1.01 MV Pk A: 0.65 E/A: 1.60 E'Medial: 12.60 E/E' Med: 8.00 E' Laterial: 16.30 E/E' Lat: 6.20 Right Ventricle TAPSE (mm): 22.40 TVS' John: 13.50 Tricuspid Valve TR Pk John: 2.08 TR Pk Grad: 17.00 RA Press: 3.00 RVSP: 20.00 Great Vessels Aorta Sinus of Valsalva: 2.80 2.0-3.[address] [place]: 2.35 1.7-3.4 cm Ao Asc: 2.40 2.1-3.4 cm Ao Arch: 2.20 Updated in Other Vendor System with Status of Final Luis Manuel Hunt MD electronically signed on 01/19/2024 12:41:53 PM with status of Final
== END ==
LOC: HO.CARD 09:03
PROVIDERS: PCP Family Medicine; Visit Provider Internal Medicine
DX: R00.2 Palpitations (principal)
CPT/HCPCS: 93270; 93306; 93356

== ENCOUNTER → 2024-01-18 09:07 | Outpatient (BNV) | payer OTHER, SELFPAY | PROVIDERS: PCP Family Medicine; Visit Provider Internal Medicine Cardiovascular Disease | DX: R00.0 Tachycardia, unspecified (principal) | CPT/HCPCS: 93272; 93306 ==

== ENCOUNTER 2024-02-13 08:16 | Outpatient (AMB) | payer OTHER, SELFPAY ==
--- NOTE | 2024-02-13 08:30 | MHC.OFFVIS ---
Intake Vital Signs 02/13/24 08:31 Height 5 ft 2 in Weight 129 lb BMI 23.6 Handedness Right Intake Visit Reasons: New Pt - left knee pain Intake Note: Rhiannon is a 38 year old female who presents today as a new patient for a evaluation of her left knee pain. Patient reports ongoing/off and on pain started about 7-8 months ago. Hx of injury back in May. She states when she is putting pressure on her knee, makes her pain worse. Mostly all her pain is on the medial aspect of the knee and usually stays around that area. What make her pain better is when she is icing, resting and taking ibuprofen. Currently, she is having pain on the medial aspect of the knee. Allergies No Known Allergies Allergy (Verified 02/13/24 08:34) HPI New Pt - left knee pain HPI Details 38-year-old female who presents in the office today, as a new patient, for an evaluation of left knee pain. The patient was referred to the office by her PCP on 01/12/2024 with complaint of left knee pain along the patella tendon and distal insertion of the hamstrings. She was referred for physical therapy. Patient reports in the office today that she has intermittent pain that began around 7-8 months ago. She claims when she applies pressure on the left knee she has increased pain. She reports her pain is on the medial aspect of the knee and does not radiate. She states icing, resting, and Ibuprofen gives her some pain relief. Patient has a history of a back injury in 05/2023. [facility], [facility] Medical History Shingles Acid reflux IBS (irritable bowel syndrome) Cervical spine fracture Palpitations Asthma Surgical History H/O endoscopy Family History Mother SVT (supraventricular tachycardia) Father Afib Paternal Grandmother Thyroid disorder Breast cancer Paternal Grandfather Diabetes Social History (Updated 02/13/24 @ 08:35 by Tiffany Foley) Housing: House Alcohol intake: current Alcohol intake frequency: holidays/special occasions only Patient Tobacco Use Status: Never used Tobacco e-Cigarette/Vaping Use: Never Used service: No Current occupational status: employed 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 Sexual orientation: Unable to collect Gender identity: Unable to collect Cognitive needs: No Hearing needs: No Vision needs: Yes (Patient wears glasses) Review of Systems Const All systems reviewed & are unremarkable except as noted in HPI and below Physical Exam Vital Signs: BMI result Body Mass Index 23.6 Const General: cooperative and no acute distress Orientation/consciousness: patient oriented x3 Resp Effort & Inspection: normal respiratory effort and able to speak in complete sentences Cardio Peripheral pulses: Peripheral pulses 2+ throughout Skin General skin exam: no rashes or lesions noted Neuro General: patient oriented x3 Extrem Other: Left knee: Normal to inspection. No ecchymosis, erythema, or joint effusion. No tenderness to palpation to the medial or lateral joint lines. Slight tenderness to palpation along the medial proximal femur. Full knee extension and flexion. Negative Eli's. Negative anterior drawer. NVI. Assessment & Plan Assessment & Plan (1) Osteochondroma of femur: Code(s): D16.20 - Benign neoplasm of long bones of unspecified lower limb Qualifiers: Laterality: left Qualified Code(s): D16.22 - Benign neoplasm of long bones of left lower limb (2) Knee pain: Code(s): M25.569 - Pain in unspecified knee Qualifiers: Chronicity: unspecified Laterality: left Qualified Code(s): M25.562 - Pain in left knee Plan Ms. Wilson is a 38-year-old female who presents in the office today, as a new patient, for an evaluation of left knee pain. The patient was referred to the office by her PCP on 01/12/2024 with complaint of left knee pain along the patella tendon and distal insertion of the hamstrings. She was referred for physical therapy. Patient reports in the office today that she has intermittent pain that began around 7-8 months ago. She claims when she applies pressure on the left knee she has increased pain. She reports her pain is on the medial aspect of the knee and does not radiate. She states icing, resting, and Ibuprofen gives her some pain relief. Patient has a history of a back injury in 05/2023. A referral for the patient to attend physical therapy was made while in the office today. She would like to attend the [facility] office due to it being closer to her home. Should the pain continue after the completion of physical therapy then the next step would be to move forward with an MRI to further evaluated the intermittent of the surrounding structures of the knee. Follow up will be in 6 weeks, or sooner if needed. X-rays of the left knee which were obtained while in the office today and were reviewed by me, Imani Carmona PA-C, revealed no acute fractures or dislocation. X-rays of the left knee, obtained on 12/14/2023, revealed: No acute fractures or dislocations. Osteochondroma. Orders: Orders XR knee standing BI Today M25.569 - Pain in unspecified knee PT Evaluation and Treatment Today D16.20 - Benign neoplasm of long bones of unspecified lower limb, M25.569 - Pain in unspecified knee Patient Instructions: Scribed by Radha Jay, medical geneticist, for Imani Carmona PA-C on 02/13/2024 at 8:18 am, EST. Coding Level of Care Code New Pt Level 4 (26965) Diagnoses Osteochondroma of left femur D16.22 Laterality: left Left knee pain, unspecified chronicity M25.562 Chronicity: unspecified Laterality: left
[2024-02-13 08:31] VITALS: BMI 23.6
== END 2024-02-13 08:58 | disposition home or self-care (01) ==
PROVIDERS: PCP Family Medicine; Visit Provider Physician Assistant
DX: M25.562 Pain in left knee (principal); D16.22 Benign neoplasm of long bones of left lower limb
CPT/HCPCS: 99203

== ENCOUNTER 2024-02-13 14:37 | Outpatient (REF) | payer OTHER, SELFPAY ==
--- NOTE | ~2024-02-13 | XR_ITS ---
EXAMINATION: XR KNEE, LEFT XR KNEE AP STANDING CLINICAL INFORMATION: Pain. COMPARISON: None TECHNIQUE: Lateral and axial views of the left knee were obtained. AP bilateral standing view of the knees was obtained. FINDINGS: Bones and soft tissues are normal. No fracture or joint effusion. Alignment is anatomic. Joint spaces are well maintained. No abnormal soft tissue calcification. No significant varus or valgus configuration is seen bilaterally. A 3.0 x 0.9 cm exostosis is seen arising from the left medial femoral condyle. XR/XR knee standing BI IMPRESSION: 1. No fracture, dislocation or unusual degenerative change is seen of the bilateral knees. 2. A 3.0 x 0.9 cm exostosis is noted, arising from the left medial femoral condyle.
--- NOTE | ~2024-02-13 | XR_ITS ---
EXAMINATION: XR KNEE, LEFT XR KNEE AP STANDING CLINICAL INFORMATION: Pain. COMPARISON: None TECHNIQUE: Lateral and axial views of the left knee were obtained. AP bilateral standing view of the knees was obtained. FINDINGS: Bones and soft tissues are normal. No fracture or joint effusion. Alignment is anatomic. Joint spaces are well maintained. No abnormal soft tissue calcification. No significant varus or valgus configuration is seen bilaterally. A 3.0 x 0.9 cm exostosis is seen arising from the left medial femoral condyle. XR/XR knee LT 2V IMPRESSION: 1. No fracture, dislocation or unusual degenerative change is seen of the bilateral knees. 2. A 3.0 x 0.9 cm exostosis is noted, arising from the left medial femoral condyle.
== END 2024-02-13 14:38 | disposition home or self-care (01) ==
LOC: HO.HOSX 14:37
PROVIDERS: Visit Provider Physician Assistant
DX: M25.569 Pain in unspecified knee (principal)
CPT/HCPCS: 73560; 73565; 99202

== ENCOUNTER 2024-02-29 13:09 | Outpatient (AMB) | payer OTHER, SELFPAY ==
[2024-02-29 13:12] VITALS: BP 130/68; PULSE 78; BMI 23.4
--- NOTE | 2024-02-29 13:12 | MHC.OFFVIS ---
Intake Vital Signs 02/29/24 13:12 Height 5 ft 2 in Weight 127 lb 13.89 oz BMI 23.4 BP 130/68 Blood Pressure Location Lt brachial Position Sitting Pulse 78 Pulse Source Palpation Intake Visit Reasons: f/up 30 day andholter/ HS Intake Note: follow up holter Pt feels good Allergies No Known Allergies Allergy (Verified 02/29/24 13:16) Medication List - Last Reconciled 02/29/24 by Laura Mckinnon NP etonogestrel-ethinyl estradiol 0.12-0.015 mg/24 hr (NuvaRing) 1 vag ring vaginal Q4W HPI HPI Comments History of Present Illness Details 38-year-old female presents for a follow-up on palpitations. She reports she still having intermittent palpitations. She did not complete the 30 day cardiac montior due to a reaction to the adhesives. She reports her palpitations are a fast heart rate or if her heart is pounding. She states she only gets dizzy is if the palpitations wake her up at night. The episodes last seconds to minutes and sometimes up to 30 minutes long. She hydrates well and drinks at most one cup of caffeine a day. 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 Sexual orientation: Unable to collect Gender identity: Unable to collect Cognitive needs: No Hearing needs: No Vision needs: Yes (Patient wears glasses) Review of Systems Const Denies weakness ENT Denies dizziness Card Denies chest pain, Denies chest pain with activity, Denies syncope, Denies rapid heart rate, Denies pedal edema, Denies edema, Denies leg edema, Denies lightheadedness, Denies palpitations, Denies dyspnea, Denies dyspnea on exertion and Denies orthopnea Resp Denies cough, Denies dyspnea and Denies dyspnea on exertion GI Denies hematochezia and Denies change in stool character Musc Denies abnormal gait, Denies muscle cramps, Denies muscle weakness, Denies numbness, Denies radiating pain into limb and Denies tingling Neuro Denies abnormal gait, Denies dizziness, Denies syncope, Denies numbness, Denies tingling and Denies weakness Endo Denies palpitations Physical Exam Vital Signs: Last Vital Signs Pulse 78 02/29/24 13:12 BP 130/68 02/29/24 13:12 BMI result Body Mass Index 23.4 Assessment & Plan Assessment & Plan (1) Palpitations: Code(s): R00.2 - Palpitations Plan Patient did 4 days of 30 days of the 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 Holter results are not available. Reports episodes last seconds to minutes sometimes up to 30 minutes of heart racing or pounding. Need to search for them. Coding Level of Care Code Est Pt Level 3 (59522) Diagnoses Palpitations R00.2
== END 2024-02-29 13:41 | disposition home or self-care (01) ==
PROVIDERS: PCP Family Medicine; Visit Provider Nurse Practitioner
DX: R00.2 Palpitations (principal)
CPT/HCPCS: 99213

== ENCOUNTER → 2024-02-29 13:09 | Outpatient (BNVA) | payer OTHER, SELFPAY | PROVIDERS: PCP Family Medicine; Visit Provider Nurse Practitioner | DX: R00.2 Palpitations (principal) | CPT/HCPCS: 99212 ==

== ENCOUNTER 2024-08-29 09:06 | Outpatient (AMB) | payer OTHER, SELFPAY ==
[2024-08-29 09:09] VITALS: BP 124/70; PULSE 95; BMI 23.5
--- NOTE | 2024-08-29 09:09 | A.OFFVIS_ITS ---
Vital Signs 08/29/24 09:09 Height 5 ft 2 in Weight 128 lb 4.944 oz BMI 23.5 BP 124/70 Blood Pressure Location Lt brachial Position Sitting Pulse 95 Pulse Source Pulse Oximeter Intake Visit Reasons: 6m follow up Superintendent Of Generation Required: No Accompanied by: Self / Same As Patient Allergies No Known Allergies Allergy (Verified 02/29/24 13:16) Medication List - Last Reconciled 08/29/24 by Norm Avery MD etonogestrel-ethinyl estradiol 0.12-0.015 mg/24 hr (NuvaRing) 1 vag ring vaginal Q4W HPI Comments Details: Rhiannon returns for follow-up. In the past, she was seen regarding palpitations. That was happening mostly when she was resting but not during activity. Has had this for few years. In 2019, she was seen at [facility] and it seems that a 30 day monitor was recommended but did not pursue that. Otherwise, no known cardiac issues including coronary disease or myocardial infarction or cardiomyopathy. No known arrhythmias. She tried empiric metoprolol but had side effects and hence not taking it currently. She also has asthma but again well controlled. There is a family history of supraventricular tachycardia as well as atrial fibrillation and hence she is concerned. Since last seen, she states that she stopped monitoring her own heart rates with smart watch and after that, she actually felt much better. 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 Sexual orientation: Unable to collect Gender identity: Unable to collect Cognitive needs: No Hearing needs: No Vision needs: Yes (Patient wears glasses) Review of Systems Const Denies chills, Denies fatigue, Denies fever(s), Denies weight gain and Denies weight loss ENT Denies dizziness Card Denies chest pain, Denies leg edema, Denies lightheadedness, Denies palpitations, Denies dyspnea on exertion, Denies orthopnea and Denies other Resp Denies cough and Denies dyspnea on exertion GI Denies hematochezia and Denies change in stool character Musc Denies abnormal gait, Denies muscle weakness, Denies numbness, Denies radiating pain into limb and Denies tingling Neuro Denies abnormal gait, Denies dizziness, Denies numbness and Denies tingling Endo Denies fatigue and Denies palpitations Physical Exam Vital Signs: Last Vital Signs Pulse 95 08/29/24 09:09 BP 124/70 08/29/24 09:09 BMI result Body Mass Index 23.5 Const General: comfortable and no acute distress Orientation/consciousness: patient oriented x3 HEENT Other: Unremarkable Head: Yes normal to inspection Neck Neck: Yes normal visual inspection Chest Chest palpation & inspection: normal inspection of the chest Resp Auscultation: clear to auscultation bilaterally Cardio Palpation: normal PMI Heart sounds: S1 normal heart sound present, S2 normal heart sound present, no gallops, no murmurs and no rubs GI Palpation (GI): Soft to palpation Back/Spine/Pelvis Other: unremarkable Skin General skin exam: no rashes or lesions noted Neuro General: patient oriented x3 Extrem General: Yes normal to inspection Psych Mental Status: mental status grossly normal Assessment & Plan Assessment & Plan (1) Palpitations: Code(s): R00.2 - Palpitations Category: Medical Plan Cardiac studies reviewed. In the EKG, underlying rhythm is sinus at 97/Min; no significant ST-T changes and otherwise unremarkable. Normal MN and corrected QT. Echocardiogram with LVEF of 60-65%; normal peak global longitudinal strain and otherwise unremarkable. In the 30 day monitor, underlying rhythm was sinus with evidence of sinus tachycardia; rare supraventricular ectopy. Findings discussed with patient. Nothing really concerning. She states she is actually feeling much better once she stopped monitoring her own heart rates on the Apple watch. Otherwise, she will contact us if any ongoing symptoms or concerns. Coding Level of Care Code Est Pt Level 3 (46588) Diagnoses Palpitations R00.2
== END 2024-08-29 09:22 | disposition home or self-care (01) ==
PROVIDERS: PCP Family Medicine; Visit Provider Internal Medicine
DX: R00.2 Palpitations (principal)
CPT/HCPCS: 99213

== ENCOUNTER → 2024-08-29 09:06 | Outpatient (BNVA) | payer OTHER, SELFPAY | PROVIDERS: PCP Family Medicine; Visit Provider Internal Medicine | DX: R00.2 Palpitations (principal) | CPT/HCPCS: 99212 ==

== ENCOUNTER → 2025-01-03 08:48 | Outpatient (BNVA) | payer OTHER, SELFPAY | PROVIDERS: PCP Family Medicine; Visit Provider Family Medicine | DX: Z00.00 Encounter for general adult medical examination without abnormal findings (principal); Z23 Encounter for immunization; M25.562 Pain in left knee; R00.2 Palpitations | CPT/HCPCS: 90471; 90715; 96127; 99395 ==

== ENCOUNTER 2025-01-03 10:41 | Outpatient (REF) | payer OTHER, SELFPAY ==
[2025-01-03 14:36] LABS: Appearance Urine Clear; Color Urine Yellow; Glucose Urine UA Negative (Negative); Leukocyte Esterase Urine Moderate (2+) (Negative); Nitrite Urine Negative (Negative); PH 5.5 (5.0-9.0); Specific Gravity - Urine 1.025 (1.005-1.025); UMIC TRIGGER UA YES; Urine Blood Negative (Negative); Urine Ketones Trace mg/dL (Negative); Urine Protein Negative (Neg-Trace)
[2025-01-03 15:02] LABS: Bacteria Urine Trace (None Seen); Creatinine Urine 237.65 mg/dL; Hyaline Casts Urine 0-2 /LPF (0-2); Microalbum/Creatinine Ratio Ur 3.7 ug/mg cr (<30); RBC Urine 0-2 /HPF (0-2); WBC Urine 0-5 /HPF (0-5)
[2025-01-03 15:03] LABS: Alanine Aminotransferase 13 U/L (0-31); Albumin Level 4.2 g/dL (3.5-5.0); Alkaline Phosphatase 44 U/L (39-117); Anion Gap 16 (12-20); Aspartate Amino Transferase 24 U/L (5-31); Blood Urea Nitrogen 12 mg/dL (9-16); Calcium 9.1 mg/dL (8.4-10.2); Carbon Dioxide 21 mmol/L (22-29); Chloride 107 mmol/L (96-108); Cholesterol 199 mg/dL (<200); Estimated Glomerular Filt Rate > 60; Glucose Fasting 81 mg/dL (60-99); HDL Cholesterol 54 mg/dL (>40); LDL Cholesterol Calculated 126 mg/dL (<100); Potassium 4.2 mmol/L (3.3-5.1); Sodium 140 mmol/L (135-145); Total Protein 7.8 g/dL (6.5-8.0); Triglycerides 98 mg/dL (<150)
[2025-01-03 15:22] LABS: Bilirubin Total 0.3 mg/dL (0.0-1.0); TSH reflex Free T4 0.72 uIU/mL (0.32-4.0)
== END 2025-01-03 10:42 | disposition home or self-care (01) ==
LOC: HO.WFDLDS 10:41
PROVIDERS: Visit Provider Family Medicine
DX: Z00.00 Encounter for general adult medical examination without abnormal findings (principal); I10 Essential (primary) hypertension; M25.569 Pain in unspecified knee
CPT/HCPCS: 36415; 80053; 80061; 81001; 82043; 82570; 84443

== ENCOUNTER → 2025-01-31 10:28 | Outpatient (BNVA) | payer OTHER, SELFPAY | PROVIDERS: PCP Family Medicine; Visit Provider Family Medicine ==